=== PATIENT | female | born 1955 | race Caucasian/White ===

== ENCOUNTER → 2016-12-15 | Outpatient (CLI) | payer MEDICARE, MEDICAID ==
[2016-08-04 14:35] VITALS: BP 110/51
[~2016-12-15] MED LIST: ALPR0.257 PO; ALPR0.5T6 PO; ASPI-482 PO; BUDE10.2 IH; CARV20CP PO; CARV40CP PO; CARV6.252 PO; CHOL10003 PO; DIGO125T PO; DULO60CA6 PO; ESCI20TA10 PO; FURO-68 PO; FURO80TA3 PO; GABA-586 PO; IPRA4AER IH; ISOS30TA4 PO; LANS30CA17 PO; MOME17SP NS; PARO30TA45 PO; POTA20TA12 PO; POTA20TA82 PO; PROP150T PO; SPIR25TA3 PO; TEMA30CA PO; TRAM50TA PO
[2016-12-15 12:01] LABS: HEMATOCRIT 44.2 % (36.0-47.0); HEMOGLOBIN 14.8 g/dL (12.0-15.5)
[2016-12-15 12:16] LABS: ALBUMIN 3.8 g/dL (3.4-5.0); CALCIUM 9.4 mg/dL (8.5-10.1); CREATININE 1.1 mg/dL (0.6-1.0); GFR 50.8; MAGNESIUM 2.2 mg/dL (1.8-2.4); PHOSPHORUS 4.4 mg/dL (2.6-4.7); POTASSIUM 4.9 mmol/L (3.5-5.1)
[2016-12-15 14:18] LABS: BILIRUBIN,URINE NEGATIVE (NEG); GLUCOSE,URINE NEGATIVE (NEG); NITRITE,URINE NEGATIVE (NEG); PH,URINE 5.5; PROTEIN,URINE NEGATIVE (NEG-TRACE); UROBILINOGEN,URINE 0.2 mg/dL (0.2 mg/dL)
[2016-12-15 14:25] LABS: BACTERIA,URINE 0 /HPF (0-FEW); SQUAMOUS EPITHELIAL CELL,UR MOD /LPF; WBC,URINE 0 /HPF (0-4)
[2016-12-15 21:15] LABS: TOTAL PROTEIN CREATININE RATIO 183 mg/g creat (0-200); UR PROTEIN RD 4.3 mg/dL (Not Estab.)
== END | disposition home or self-care (01) ==
LOC: LAB 11:17
PROVIDERS: ATTEND Internal Medicine Nephrology
DX: N18.3 Chronic kidney disease, stage 3 (moderate) (principal); R80.9 Proteinuria, unspecified; N39.0 Urinary tract infection, site not specified; I42.8 Other cardiomyopathies; R11.0 Nausea; R30.0 Dysuria; R10.10 Upper abdominal pain, unspecified; Z68.24 Body mass index [BMI] 24.0-24.9, adult
CPT/HCPCS: 36415; 80069; 81001; 82043; 82570; 83735; 84156; 85014; 85018

== ENCOUNTER → 2017-06-12 | Outpatient (CLI) | payer MEDICARE, MEDICAID ==
[2016-08-04 14:35] VITALS: BP 110/51
[~2017-06-12] MED LIST changes: -ESCI20TA10 PO; -LANS30CA17 PO; +LANS30CA66 PO; +LEXAPRO20 MG PO
[2017-06-12 12:34] LABS: BASO % 1 % (0-3); EOS % 2 % (0-3); HEMATOCRIT 42.5 % (36.0-47.0); HEMOGLOBIN 14.2 g/dL (12.0-15.5); LYMPH % 35 % (24-48); MEAN CORPUSCULAR HEMOGLOBIN 30 pg (25-35); MEAN CORPUSCULAR HGB CONC 34 g/dL (31-37); MEAN CORPUSCULAR VOLUME 91 fL (79-100); MONO % 8 % (0-9); NEUT % 54 % (31-73); PLATELET COUNT 171 x10^3/uL (140-400); RED CELL DISTRIBUTION WIDTH 13.2 % (11.5-14.5); WHITE BLOOD COUNT 5.6 x10^3/uL (4.0-11.0)
[2017-06-12 12:50] LABS: ALBUMIN 3.7 g/dL (3.4-5.0); CALCIUM 8.9 mg/dL (8.5-10.1); GFR 56.7; MAGNESIUM 2.1 mg/dL (1.8-2.4); PHOSPHORUS 3.9 mg/dL (2.6-4.7); POTASSIUM 4.4 mmol/L (3.5-5.1)
[2017-06-13 03:12] LABS: UR PROTEIN RD <4.0 mg/dL (Not Estab.)
[2017-06-13 12:18] LABS: PTH INTACT 63 pg/mL (15-65)
== END | disposition home or self-care (01) ==
LOC: LAB 12:10
PROVIDERS: ATTEND Nurse Practitioner Family
DX: N18.3 Chronic kidney disease, stage 3 (moderate) (principal); I42.8 Other cardiomyopathies; E87.6 Hypokalemia; N39.0 Urinary tract infection, site not specified; I95.9 Hypotension, unspecified; R10.10 Upper abdominal pain, unspecified
CPT/HCPCS: 36415; 80069; 82043; 82570; 83735; 83970; 84156; 85025

== ENCOUNTER → 2017-09-28 | Outpatient (CLI) | payer MEDICARE, MEDICAID | END | disposition home or self-care (01) | LOC: ECHO 10:47 | DX: I08.1 Rheumatic disorders of both mitral and tricuspid valves (principal); I31.3 Pericardial effusion (noninflammatory); I42.9 Cardiomyopathy, unspecified; R06.00 Dyspnea, unspecified | CPT/HCPCS: 93306 ==

== ENCOUNTER → 2018-08-16 | Outpatient (CLI) | payer MEDICARE, MEDICAID ==
[2016-08-04 14:35] VITALS: BP 110/51
[~2018-08-16] MED LIST changes: +CARV6.2511 PO; -CARV6.252 PO; -SPIR25TA3 PO; +SPIR25TA5 PO
[2018-08-16 11:35] LABS: HEMATOCRIT 44.2 % (36.0-47.0); HEMOGLOBIN 15.1 g/dL (12.0-15.5)
[2018-08-16 11:45] LABS: ALBUMIN 3.7 g/dL (3.4-5.0); CALCIUM 9.2 mg/dL (8.5-10.1); CREATININE 1.1 mg/dL (0.6-1.0); GFR 50.5; PHOSPHORUS 4.4 mg/dL (2.6-4.7); POTASSIUM 4.3 mmol/L (3.5-5.1)
[2018-08-16 20:14] LABS: CREAT RD UR 10.1 mg/dL (Not Estab.); MICRO CREAT RATIO <29.7 mg/g creat (0.0-30.0); MICROALB RD UR <3.0 ug/mL (Not Estab.)
== END | disposition home or self-care (01) ==
LOC: LAB 11:15
PROVIDERS: ATTEND Internal Medicine Nephrology
DX: I13.0 Hypertensive heart and chronic kidney disease with heart failure and stage 1 through stage 4 chronic kidney disease, or unspecified chronic kidney disease (principal); E11.22 Type 2 diabetes mellitus with diabetic chronic kidney disease; I50.22 Chronic systolic (congestive) heart failure; N18.3 Chronic kidney disease, stage 3 (moderate); R60.0 Localized edema; Z68.24 Body mass index [BMI] 24.0-24.9, adult
CPT/HCPCS: 36415; 80069; 82043; 82570; 83735; 85014; 85018

== ENCOUNTER → 2021-01-11 | Outpatient (CLI) | payer MEDICARE, MEDICAID ==
[2016-08-04 14:35] VITALS: BP 110/51
[~2021-01-11] MED LIST changes: -DIGO125T PO; +DIGO125T3 PO; -GABA-586 PO; +GABA300C18 PO; -ISOS30TA4 PO; +ISOS30TA68 PO; +POTA20TA4 PO; -POTA20TA82 PO
--- NOTE | 2021-01-11 13:38 | KCIC ---
AP abdomen radiograph 01/11/2021 CLINICAL HISTORY: Pre-MRI screening. Possible endoscopically placed clip. An AP digital radiograph of the abdomen/pelvis was obtained. Surgical clips consistent with bilateral tubal ligation overlie the pelvis. No surgical clip is seen suggest evidence of residual endoscopic clip. The abdominal bowel gas pattern is nonobstructive. A moderate amount stool is seen throughout t he colon. The lung bases are clear. Atherosclerotic calcification of the abdominal aorta and its bran ches is noted. There is diffuse osteopenia the visualized bony structures. Degenerative changes are s een involving lumbar spine and both hips. IMPRESSION: No retained endoscopic clip is seen. Electronically signed by: Jeremie Hightower MD (01/11/2021 1:33 PM) [id number]
--- NOTE | 2021-01-11 15:51 | KCIC ---
MRI of the brain without contrast 01/11/2021 Clinical History: Ptosis involving the left eyelid.. Technique: Unenhanced T1-weighted sagittal and axial, T2-weighted axial and coronal and FLAIR, gradie nt echo and diffusion-weighted axial images of the brain were obtained. Findings: There is generalized parenchymal atrophy. Patchy and multiple small focal areas of increase d signal intensity are seen scattered throughout the periventricular and subcortical white matter of both cerebral hemispheres on the FLAIR and T2-weighted images consistent with areas of relatively mil d small vessel ischemic disease. No acute parenchymal abnormality is seen. No extra-axial fluid colle ction is noted. There is no MRI evidence of acute ischemia/infarction. The orbits are within normal l imits. Mild mucosal thickening is seen scattered throughout the paranasal sinuses. A 1 cm mucous retention c yst is seen involving the right anterior aspect of the sphenoid sinus. Normal flow voids are seen wit hin the major vascular structures surrounding the brain parenchyma. There are minimal bilateral masto id effusions. IMPRESSION: No acute parenchymal abnormality is seen. Electronically signed by: Jeremie Hightower MD (01/11/2021 3:49 PM) [id number]
== END ==
LOC: KCIC MRI 12:22
PROVIDERS: ATTEND Psychiatry & Neurology Neurology with Special Qualifications in Child Neurology
DX: H02.402 Unspecified ptosis of left eyelid (principal); M25.48 Effusion, other site
CPT/HCPCS: 70551; 74018